=== PATIENT | male | born 1965 | race Caucasian/White ===

== ENCOUNTER 2020-09-04 15:07 | Emergency (ER) | payer OTHER ==
[2020-09-04 15:22] VITALS: BP 191/119
--- NOTE | 2020-09-04 15:26 | Emergency Department Report ---
ED Extremity Problem HPI - General Stated complaint: HAND SWOLLEN/PAIN Time Seen by Provider: 09/04/20 15:08 Source: patient Mode of arrival: Ambulatory Limitations: No Limitations - History of Present Illness Initial comments: 55 year male presents to the ER today complaining of a gout flareup to the dorsal aspect of his left hand. Patient states that he started with pain and swelling about 2 days ago. Patient reports history of gout, and he states that he has had similar flareups in the left hand in the past. He states that he was on something for gout but he does not recall the name of it. He denies any injury to that hand or any bites. He denies any fever, chills, chest pain, shortness of breath or any other associated symptoms. MD Complaint: extremity pain, extremity swelling, other (left hand pain and swelling) -: days(s) (2) Location: left, other (hand) History of Same: Yes -: No myalgia, No arthralgia, No fever, No associated dyspnea, No associated chest pain Radiation: none Associated Symptoms: denies other symptoms - Related Data Previous Rx's Medication Instructions Recorded Last Taken Type Indomethacin 50 mg PO Q8H #30 capsule 09/04/20 Unknown Rx traMADoL [Ultram] 50 mg PO Q6HR PRN #30 tablet 09/04/20 Unknown Rx Allergies Allergy/AdvReac Type Severity Reaction Status Date / Time No Known Allergies Allergy Verified 09/04/20 15:16 ED Review of Systems ROS: Stated complaint: HAND SWOLLEN/PAIN Other details as noted in HPI Comment: All other systems reviewed and negative Respiratory: denies: cough, shortness of breath, wheezing Cardiovascular: denies: chest pain, palpitations Musculoskeletal: joint swelling, arthralgia Neurological: denies: headache, weakness, paresthesias Psychiatric: denies: anxiety, depression ED Past Medical Hx - Medications Home Medications: Home Medications Medication Instructions Recorded Confirmed Last Taken Type Indomethacin 50 mg PO Q8H #30 capsule 09/04/20 Unknown Rx traMADoL [Ultram] 50 mg PO Q6HR PRN #30 tablet 09/04/20 Unknown Rx ED Physical Exam - General General appearance: alert, in no apparent distress - Head Head exam: Present: atraumatic, normocephalic, normal inspection - ENT ENT exam: Present: normal exam, mucous membranes moist - Respiratory Respiratory exam: Absent: respiratory distress - Cardiovascular Cardiovascular Exam: Present: regular rate - Expanded Upper Extremity Exam Left Hand Wrist exam: Present: full ROM (Range of motion of the hands and fingers limited due to pain and swelling in the hand.), tenderness (Exquisite tenderness over the third knuckle of the dorsal left hand. No tenderness to palpation over the palmar surface of the hand on the palmar surface of the fingers and no tenderness to palpation over the dorsal fingers.), swelling (Moderate swelling to the dorsal aspect of the left hand including into the fingers.), erythema (Mild erythema noted to the dorsal aspect of the left hand, but there is no spreading redness, no palmar redness). Absent: abrasion, laceration, ecchymosis, deformity ED Course Vital Signs 09/04/20 15:17 Temperature 99 F Pulse Rate 84 Respiratory 16 Rate Blood Pressure 191/119 [Left] O2 Sat by Pulse 96 Oximetry ED Medical Decision Making - Medical Decision Making Patient presented to the ER with complaint of a gout flare to the dorsal aspect of his left hand. He has had similar flareups in that same hand in the past. Patient does have swelling, redness but he has point tenderness exquisitely to the third M CT P joint. No other area of tenderness noted. There is no spreading redness. No tenderness or erythema to the palmar surface of the hand. Patient is well-appearing, not toxic, not in any acute distress and he is afebrile suspect this is more of a gout flare at this time. Low suspicion for cellulitis, or infected tenosynovitis. Patient blood pressure noted to be anjum vated in the ER, he denies history of hypertension, he is neurologically intact and he has no complaints related to his blood pressure at this time. Recommend the patient to follow-up with his primary care doctor about his blood pressure, but will give you medication to treat his gout flare. Patient expressed understanding of instructions and agree with plan. Patient was stable at time of discharge. Critical care attestation.: If time is entered above; I have spent that time in minutes in the direct care of this critically ill patient, excluding procedure time. ED Disposition Clinical Impression: Gout of hand Disposition: DC-01 TO HOME OR SELFCARE Is pt being admited?: No Does the pt Need Aspirin: No Condition: Stable Instructions: Low-Purine Eating Plan Additional Instructions: Take the medications as prescribed. Follow up with your PCP. Return to ED if symptoms changes worsens in any way. Prescriptions: Indomethacin 50 mg PO Q8H #30 capsule traMADoL [Ultram] 50 mg PO Q6HR PRN #30 tablet PRN Reason: Pain Time of Disposition: 15:26
== END 2020-09-04 16:04 | disposition home or self-care (01) ==
LOC: ED 15:07
DX: M10.9 Gout, unspecified (principal); Z79.899 Other long term (current) drug therapy
CPT/HCPCS: 99282